=== PATIENT | male | born 1950 | race Caucasian/White ===

== ENCOUNTER → 2021-01-14 | Emergency (ER) | payer OTHER ==
[~2021-01-14] MED LIST: BACTRIM DS TAB1 EAC1 PO
--- NOTE | ~2021-01-14 | EMS ---
[address] [address] EMS Patient Care Report Name: PAULETTE GARCÍA Room #: REG MARSHALL Lennon#: [id number] Admission: 01/14/21 Attend Phys: Discharge: Date of : 46 Report #: [id number] THIS REPORT FOR: //name// Report Transmitted: 01/15/2021 10:04 EMS Care Summary [facility] MED-ACT Incident [id number] @ 01/14/2021 04:56 Incident Location [address] [place] [address] Patient PAULETTE GARCÍA Male, 70 Years 1950 Patient Address [address] [place] [address] Patient History Diabetes,Kidney/Renal Failure, Patient Allergies No known allergies, Patient Medications Pravastatin, Insulin, Aspirin, Heparin, Amlodipine, Calcium Citrate, Famotidine, Chief Complaint Hemmorhage of Penis Disposition Transported No Lights/[place] Dispatch Reason Hemorrhage/Laceration Transported To [facility] Narrative [id number] [facility] for bleeding. [address] [address] EMS Patient Care Report Name: PAULETTE GARCÍA Room #: REG [place].#: [id number] Admission: 01/14/21 Attend Phys: Discharge: Date of : 46 Report #: [id number] Upon arrival pt found lying in bed, responsive, breathing nonlabored, tended to by staff, no bleeding noted immediately. Staff states that the pt was going to the restroom when his mohan catheter got caught in the door and pulled out. Staff states that the pt had blood gushing from his penis and they only got it to stop if they held pressure. Staff states that they also placed ice on the pt penis to stop the bleeding. Pt states that his penis stings a little bit. Tech observes that pt penis is not still bleeding. Pt lifted to cot. Pt condition and vitals monitored enroute. Pt care transferred room 4 in ER Initial Vitals @05:20P: 51,R: 18,BP: 126/55,GCS: 15,SpO2: 96,Revised Trauma: 12, @05:25P: 51,R: 18,BP: 127/49,GCS: 15,SpO2: 100,Revised Trauma: 12, @05:12P: 58,R: 18,Pain: 2/10,GCS: 15,Temp: 97.8F,SpO2: 99, Assessments @05:08MENTAL:Person Oriented,Time Oriented,Place Oriented,Event Oriented,SKIN:HEENT:Head/Face: No Abnormalities,Neck/Airway: No Abnormalities,LUNG SOUNDS:ABDOMEN:PELVIS//GI:Pelvis Other,Genital Injury,Pelvis GUOther,HEM,EXTREMITIES:Left Arm: No Abnormalities,Right Arm: No Abnormalities,Left Leg: No Abnormalities,Right Leg: No Abnormalities,PULSE:NEURO:No Abnormalities, Impression Injury of External Genitals Procedures @05:24Surgical Mask on PatientResponse: [email or web address] ControlResponse: ImprovedSucceeded Timeline [employer],Bleeding Control,Response: ImprovedSucceeded, 04:55,Call Received 04:55,Psap Call 04:56,Dispatched 04:58,En Route 05:04,On Scene 05:07,At Patient 05:12,BP: / M,PULSE: 58,RR: 18 R,SPO2: 99 Ox,ETCO2: ,BG: ,PAIN: 2,GCS: 15, 05:19,Depart Scene 05:20,BP: 126/55 M,PULSE: 51,RR: 18 R,SPO2: 96 Ox,ETCO2: ,BG: ,PAIN: ,GCS: 15, [facility] [address] [place] [address] EMS Patient Care Report Name: PAULETTE GARCÍA Harsha Room #: REG [facility]#: [id number] Admission: 01/14/21 Attend Phys: Discharge: Date of : 46 Report #: [id number] 05:24,Surgical Mask on Patient,Response: Unchanged 05:25,BP: 127/49 M,PULSE: 51,RR: 18 R,SPO2: 100 Ox,ETCO2: ,BG: ,PAIN: ,GCS: 15, 05:26,At Destination 05:38,Call Closed Disclaimer v1.1 Copyright 2020 [employer] This EMS Care Summary contains data elements from the applicable legal record (which may be displayed differently). It is designed to provide pertinent information for the following purposes: continuity of care, clinical quality, and state data reporting. The complete legal record is available to ED staff and administrators of the receiving hospital in [facility]'s Patient Tracker. All data is provided "as is."
[2021-01-14 09:29] LABS: APTT 27.8 Seconds (24.5-32.8); INR 1.18; PROTIME 12.8 Seconds (10.5-12.1); URINE BILIRUBIN NEGATIVE (Negative); URINE BLOOD 3+ (Negative); URINE CLARITY CLEAR; URINE COLOR YELLOW; URINE GLUCOSE-RANDOM* TRACE (Negative); URINE KETONES NEGATIVE (Negative); URINE LEUKOCYTES 1+ (Negative); URINE NITRITE NEGATIVE (Negative); URINE PROTEIN (DIPSTICK) TRACE (Negative); URINE SPECIFIC GRAVITY 1.015 (1.005-1.035); URINE UROBILINOGEN 0.2 E.U./dl (0.2-1.0)
[2021-01-14 09:30] LABS: BACTERIA None Seen /HPF (None Seen); CASTS None Seen /LPF (None Seen); CRYSTALS None Seen /LPF (None Seen); SQUAMOUS 0-3 Few /LPF (0-3); URINE RBC >20 Many /HPF (NONE SEEN); URINE WBC 6-15 Few /HPF (NONE SEEN)
[2021-01-14 09:31] LABS: POTASSIUM 5.6 mmol/L (3.5-5.1)
[2021-01-14 09:36] LABS: ABSOLUTE NEUTROPHILS 2.3 thou/uL (1.4-8.2); BASOPHILS 1.9 % (0.0-2.0); EOSINOPHILS 0.8 % (0.0-3.0); HEMATOCRIT 25.9 % (42.0-52.0); HEMOGLOBIN 8.3 gm/dL (14.0-18.0); LYMPHOCYTES 9.4 % (24.0-44.0); MCH 33.9 pg (26.0-34.0); MCHC 32.1 g/dL (28.0-37.0); MCV 105.5 fL (80.0-100.0); MONOCYTES 14.4 % (1.0-8.0); PLATELET COUNT 182 thou/uL (150-400); POLYS 73.5 % (36.0-66.0); RBC 2.46 mil/uL (4.50-6.00); RDW 18.8 % (10.5-14.5); WBC 3.1 thou/uL (4.0-11.0)
== END ==
LOC: ER 05:27
PROVIDERS: Emergency Medicine
DX: T83.098A Other mechanical complication of other urinary catheter, initial encounter (principal); E87.6 Hypokalemia; R31.9 Hematuria, unspecified; Y92.89 Other specified places as the place of occurrence of the external cause